=== PATIENT | female | born 1955 | race Caucasian/White ===

== ENCOUNTER → 2024-08-07 | Outpatient (CLI) | payer MEDICARE, SELFPAY | END | disposition home or self-care (01) | PROVIDERS: Visit Provider Student in an Organized Health Care Education/Training Program | DX: S81.802A Unspecified open wound, left lower leg, initial encounter (principal); W19.XXXA Unspecified fall, initial encounter; R73.03 Prediabetes; N18.30 Chronic kidney disease, stage 3 unspecified; K25.4 Chronic or unspecified gastric ulcer with hemorrhage; I12.9 Hypertensive chronic kidney disease with stage 1 through stage 4 chronic kidney disease, or unspecified chronic kidney disease | CPT/HCPCS: 97597; 99213; A9270; G0463 ==

== ENCOUNTER → 2024-08-14 | Outpatient (CLI) | payer MEDICARE, SELFPAY | END | disposition home or self-care (01) | PROVIDERS: PCP Family Medicine; Referring Provider Family Medicine; Visit Provider Surgery | DX: S81.802A Unspecified open wound, left lower leg, initial encounter (principal); W19.XXXA Unspecified fall, initial encounter; L97.821 Non-pressure chronic ulcer of other part of left lower leg limited to breakdown of skin; R73.03 Prediabetes; N18.30 Chronic kidney disease, stage 3 unspecified; K25.4 Chronic or unspecified gastric ulcer with hemorrhage; I12.9 Hypertensive chronic kidney disease with stage 1 through stage 4 chronic kidney disease, or unspecified chronic kidney disease | CPT/HCPCS: 29581; A9270 ==

== ENCOUNTER → 2024-08-28 | Outpatient (CLI) | payer MEDICARE, SELFPAY | END | disposition home or self-care (01) | PROVIDERS: PCP Family Medicine; Referring Provider Family Medicine; Visit Provider Student in an Organized Health Care Education/Training Program | DX: S81.802A Unspecified open wound, left lower leg, initial encounter (principal); W19.XXXA Unspecified fall, initial encounter; L97.821 Non-pressure chronic ulcer of other part of left lower leg limited to breakdown of skin; R73.03 Prediabetes; N18.30 Chronic kidney disease, stage 3 unspecified; K25.4 Chronic or unspecified gastric ulcer with hemorrhage; I12.9 Hypertensive chronic kidney disease with stage 1 through stage 4 chronic kidney disease, or unspecified chronic kidney disease | CPT/HCPCS: 99213; A9270; G0463 ==

== ENCOUNTER → 2024-09-04 | Outpatient (CLI) | payer MEDICARE, SELFPAY | END | disposition home or self-care (01) | LOC: SWHD 14:35 | PROVIDERS: PCP Family Medicine; Referring Provider Family Medicine; Visit Provider Surgery | DX: S81.802A Unspecified open wound, left lower leg, initial encounter (principal); W19.XXXA Unspecified fall, initial encounter; L97.821 Non-pressure chronic ulcer of other part of left lower leg limited to breakdown of skin; R73.03 Prediabetes; N18.30 Chronic kidney disease, stage 3 unspecified; K25.4 Chronic or unspecified gastric ulcer with hemorrhage; I12.9 Hypertensive chronic kidney disease with stage 1 through stage 4 chronic kidney disease, or unspecified chronic kidney disease | CPT/HCPCS: 29581; A9270 ==

== ENCOUNTER → 2024-09-11 | Outpatient (CLI) | payer MEDICARE, SELFPAY | END | disposition home or self-care (01) | LOC: SWHD 13:06 | PROVIDERS: PCP Family Medicine; Referring Provider Family Medicine; Visit Provider Surgery | DX: S81.802A Unspecified open wound, left lower leg, initial encounter (principal); W19.XXXA Unspecified fall, initial encounter; L97.821 Non-pressure chronic ulcer of other part of left lower leg limited to breakdown of skin; R73.03 Prediabetes; N18.30 Chronic kidney disease, stage 3 unspecified; K25.4 Chronic or unspecified gastric ulcer with hemorrhage; I12.9 Hypertensive chronic kidney disease with stage 1 through stage 4 chronic kidney disease, or unspecified chronic kidney disease | CPT/HCPCS: 29581; A9270 ==

== ENCOUNTER → 2024-09-25 | Outpatient (CLI) | payer MEDICARE, SELFPAY | END | disposition home or self-care (01) | LOC: SWHD 13:03 | PROVIDERS: PCP Family Medicine; Referring Provider Family Medicine; Visit Provider Physician Assistant | DX: S81.802A Unspecified open wound, left lower leg, initial encounter (principal); X58.XXXA Exposure to other specified factors, initial encounter; L97.821 Non-pressure chronic ulcer of other part of left lower leg limited to breakdown of skin; R73.03 Prediabetes; N18.30 Chronic kidney disease, stage 3 unspecified; K25.4 Chronic or unspecified gastric ulcer with hemorrhage; I12.9 Hypertensive chronic kidney disease with stage 1 through stage 4 chronic kidney disease, or unspecified chronic kidney disease | CPT/HCPCS: 99212; G0463 ==

== ENCOUNTER → 2025-03-03 | Outpatient (CLI) | payer MEDICARE, SELFPAY ==
[2025-03-03 16:58] LABS: Basophils # (Auto) 0.0 Thou/mm3 (0.0-0.2); Basophils % (Auto) 1 % (0-2.5); Eosinophils # (Auto) 0.0 Thou/mm3 (0.0-0.5); Eosinophils % (Auto) 1 % (0-10); Hematocrit 37.0 % (36.0-46.0); Hemoglobin 12.3 g/dL (12.0-16.0); Immature Granulocytes Auto 0.02 Thou/mm3 (0.00-0.00); Lymphocytes # (Auto) 1.4 Thou/mm3 (1.0-4.8); Lymphocytes % (Auto) 25 % (10-50); Mean Corpuscular HGB Conc 33.2 g/dl (31.0-37.0); Mean Corpuscular Hemoglobin 33.0 pg (25.0-35.0); Mean Corpuscular Volume 99 fL (80-100); Monocytes # (Auto) 0.4 Thou/mm3 (0.0-0.8); Monocytes % (Auto) 7 % (0-12); Neutrophils # (Auto) 3.7 Thou/mm3 (1.8-7.7); Neutrophils % (Auto) 67 % (37-80); Nucleated Red Blood Cell # 0.00 Thou/mm3 (0.00-0.00); Nucleated Red Blood Cell % 0 /100 WBC (0); Platelet Count 245 Thou/mm3 (140-440); RDW Standard Deviation 50.4 fL (36.4-46.3); Red Blood Count 3.73 Miln/mm3 (4.00-5.20); White Blood Count 5.6 Thou/mm3 (3.6-11.0)
[2025-03-03 17:18] LABS: T4 (Thyroxine) 7.2 mcg/dL (4.5-10.9)
[2025-03-03 17:24] LABS: Alanine Aminotransferase 8 U/L (10-49); Albumin, Serum 4.4 gm/dL (3.4-4.8); Albumin/Globulin Ratio 1.9 (1.2-2.2); Alkaline Phosphatase 73 U/L (46-116); Anion Gap 7 (7-16); Aspartate Amino Transferase 16 U/L (0-34); BUN/Creatinine Ratio 10 Ratio (12-20); Bilirubin,Total 0.5 mg/dL (0.3-1.2); Blood Urea Nitrogen 12 mg/dL (9-23); Calcium 10.2 mg/dL (8.3-10.6); Calcium (Corrected) 10.2 mg/dL (8.5-10.1); Carbon Dioxide 28.2 mMol/L (20.0-31.0); Cardiac Risk Estimate 2.4 RATIO (3.7-5.6); Chloride 107 mMol/L (98-107); Cholesterol 181 mg/dL (132-200); Creatinine (Component) 1.2 mg/dL (0.6-1.3); Free T4 (Free Thyroxine) 1.18 ng/dL (0.89-1.76); Globulin 2.3 gm/dL (2.3-3.5); Glucose 100 mg/dL (74-106); HDL Cholesterol 77 mg/dL (40-60); LDL Cholesterol,Calculated 89 mg/dL (0-130); Osmolality,Calculated 282 (275-295); Potassium 4.5 mMol/L (3.4-5.1); Sodium 142 mMol/L (136-145); Thyroid Stimulating Hormone 0.24 uIU/mL (0.55-4.78); Total Protein 6.7 gm/dL (5.7-8.2); Triglycerides 74 mg/dL (30-150); eGFR 50 See Note
[2025-03-10 06:52] LABS: T3,Total* 98 ng/dL (76-181)
== END | disposition home or self-care (01) ==
LOC: COPL 15:16
PROVIDERS: PCP Family Medicine; Referring Provider Dermatology; Visit Provider Family Medicine
DX: E66.3 Overweight (principal)
CPT/HCPCS: 36415; 80053; 80061; 84436; 84439; 84443; 84480; 85025